=== PATIENT | female | born 1930 | race African-American/Black ===

== ENCOUNTER 2018-01-24 02:38 | Emergency (ER) | payer MEDICARE, OTHER ==
[~2018-01-24] VITALS: Ht 170.2 cm; Wt 81.6 kg
--- NOTE | 2018-01-24 02:52 | NUR ---
PT TO ER BED 12. PT BIBPA FROM [facility] C/O R FOOT SWELLING;XRAY SHOWS POSS TOE FRACTURE. +CSM R FOOT. PT PLACED IN GOWN AND ON BUSINESS SUPERVISOR. VSS/RESP EVEN UNLABORED/NAD NOTED/SKIN WARM AND DRY/DENIES N-V-D/AOX4. AWAITING MD LUTZ.
--- NOTE | 2018-01-24 03:00 | NUR ---
AT BEDSIDE FOR EVAL.
--- NOTE | 2018-01-24 03:05 | NUR ---
XRAY AT BEDSIDE.
--- NOTE | 2018-01-24 03:31 | NUR ---
[id number] REF NUMBER, [id number]
--- NOTE | 2018-01-24 03:35 | NUR ---
EMT AT BEDSIDE TO YAJAIRA TAPE R GREAT TOE PER MD ORDERS.
--- NOTE | 2018-01-24 04:12 | NUR ---
Patient discharged to home in stable condition. Written and verbal after care instructions given to [facility] EMT.
[2018-01-24 04:14] VITALS: BP 132/89
== END 2018-01-24 04:15 | disposition home or self-care (01) ==
LOC: ER 02:39
DX: S92.411A Displaced fracture of proximal phalanx of right great toe, initial encounter for closed fracture (principal); F02.80 Dementia in other diseases classified elsewhere, unspecified severity, without behavioral disturbance, psychotic disturbance, mood disturbance, and anxiety; F32.9 Major depressive disorder, single episode, unspecified; G30.9 Alzheimer's disease, unspecified; G89.29 Other chronic pain; I25.10 Atherosclerotic heart disease of native coronary artery without angina pectoris; X58.XXXA Exposure to other specified factors, initial encounter; Y93.89 Activity, other specified; Y92.89 Other specified places as the place of occurrence of the external cause; Y99.8 Other external cause status
CPT/HCPCS: 73630-TC; A4606; Z7610

== ENCOUNTER 2019-12-03 12:32 | Emergency (ER) | payer MEDICARE, OTHER ==
[~2019-12-03] VITALS: Ht 162.6 cm; Wt 54.4 kg
--- NOTE | 2019-12-03 12:35 | NUR ---
[facility] cage [facility]. Patient a/ox2, breathing even and unlabored, no sob noted, needs attended.
--- NOTE | 2019-12-03 12:44 | NUR ---
DR. SUERO AT BEDSIDE FOR EVAL.
[2019-12-03 13:10] LABS: BASOPHILS % (AUTO) 0.8 % (0.0-2.0); HEMATOCRIT 41 % (33-45); HEMOGLOBIN 13.6 g/dL (11.5-14.8); LYMPHOCYTES # (AUTO) 1.6 /CMM (0.8-4.8); LYMPHOCYTES % (AUTO) 38.8 % (20.0-44.0); MEAN CORPUSCULAR HGB CONC 33 g/dl (31.0-36.0); MEAN CORPUSCULAR VOLUME 94 fL (82-100); MONOCYTES # (AUTO) 0.5 /CMM (0.1-1.30); MONOCYTES % (AUTO) 12.3 % (2.0-12.0); NEUTROPHILS # (AUTO) 1.9 /CMM (1.8-8.9); NEUTROPHILS % (AUTO) 46.1 % (43.0-81.0); PLATELET COUNT (AUTO) 211 /CMM (150-450); RED BLOOD CELL COUNT(AUTO) 4.38 MIL/uL (4.0-5.2)
[2019-12-03 13:21] LABS: CALCIUM, SERUM 9.5 mg/dL (8.5-10.1); CARBON DIOXIDE 34 mmol/L (21-32); CHLORIDE 107 mmol/L (98-107); CREATININE 0.8 mg/dL (0.6-1.3); GLUCOSE 113 mg/dL (74-106); POTASSIUM 3.8 mmol/L (3.5-5.1); SODIUM SERUM 144 mmol/L (136-145); UREA NITROGEN, BLOOD 16 mg/dL (7-18)
[2019-12-03 13:28] LABS: ALANINE AMINOTRANSFERASE 126 U/L (12-78); ALBUMIN 3.5 g/dL (3.4-5.0); ALKALINE PHOSPHATASE 151 U/L (46-116); ASPARTATE AMINOTRANSFERASE 105 U/L (15-37); BILIRUBIN,DIRECT 0.1 mg/dL (0.0-0.2); BILIRUBIN,TOTAL 0.5 mg/dL (0.2-1.0); TOTAL PROTEIN, SERUM 7.9 g/dL (6.4-8.2)
--- NOTE | 2019-12-03 13:54 | NUR ---
CALLED [facility] [phone] SULMA RAM 1500 TRIP # [id number]
--- NOTE | 2019-12-03 14:16 | NUR ---
Patient is resting comfortably in bed with eyes closed. Easily aroused. VSS
--- NOTE | 2019-12-03 14:30 | NUR ---
CALLED [facility], SPOKE WITH NURSE-DILCIA. REPORT GIVEN.
--- NOTE | 2019-12-03 15:05 | NUR ---
REPORT GIVEN TO [employer] SALES LEAD. Patient discharged to SNF in stable condition. Written and verbal after care instructions given. Patient verbalizes understanding of instruction.
[2019-12-03 15:07] VITALS: BP 131/80
== END 2019-12-03 15:25 ==
LOC: ER 12:34
DX: R07.81 Pleurodynia (principal); G30.9 Alzheimer's disease, unspecified; F02.80 Dementia in other diseases classified elsewhere, unspecified severity, without behavioral disturbance, psychotic disturbance, mood disturbance, and anxiety; I25.10 Atherosclerotic heart disease of native coronary artery without angina pectoris; F32.9 Major depressive disorder, single episode, unspecified; G89.29 Other chronic pain
CPT/HCPCS: 36415; 71045-TC; 80048-TC; 80076-TC; 84484-TC; 85025-TC